=== PATIENT | female | born 2005 | race African-American/Black ===

== ENCOUNTER 2025-02-06 08:14 | Emergency (ER) | payer MEDICAID, SELFPAY ==
[2025-02-06 08:24] VITALS: BP 107/69; PULSE 89; RESP 18; TEMP 36.5; O2SAT 100
--- OUTSIDE RECORDS SUMMARY | 2025-02-06 08:57 | XMS_ITS | Clinical Summary ---
Author Organization [facility] Address [address] [place] [id number] Care Team Providers Care Sausage Stuffer Name Role Phone [facility] Primary Care Prov ider Allergies No known active allergies Medications tacrolimus (PROTOPIC) 0.1 % ointmentIndicat ions:Dermatitis Apply thin layer to affected areas on face and neck 1-2 times a day as needed . Not a steroid. Safe for long term care phlebotomist daily application. 60 g 3 5 Active white petrolatum (Aquaphor OriginaL) 41 % ointmentIndicat ions:Cheilitis Apply topically to affected area(s) 3 times daily if needed (multiple times daily). 30 g 2 5 Active tretinoin (RETIN-A) 0.025 % creamIndication s:Acne vulgaris Apply pea-sized amount to face at bedtime; start every other night, increase as tolerated 45 g 11 5 Active Active Problems Problem Noted Date Diagnosed Date Prediabetes 12/24/2024 Adjustment disorder with mixed anxiety and depre ssed mood 03/19/2023 Encounters Date Type Department Care Team Description 01/26/2025 Travel 01/03/2025 12:40 PM CDT Telemedicine [facility] [address] [place] [id number] Judith Joaquin MD Derm Problem 12/24/2024 11:20 AM CDT Telemedicine [facility] [address] [facility] [place] [id number] Simi Ch NP Telehealth (Discuss ADHD concerns) 11/29/2024 1:40 PM CDT Telemedicine [facility] [address] [address] Elda Serrato PA Telehealth (no vitals taken/) 11/18/2024 3:00 PM CDT Office Visit [facility] [address] [place], [place] [id number] Jason Henry, SILVESTRE Eye Problem 11/17/2024 Travel from Last 3 Months Immunizations Immunization Administration Dates Next Due DTaP 02/11/2006, 4,03/09/2004,01/03 DTaP-IPV (Kinrix) 01/08/2010 HIB PRP-OMP (PedvaxHIB) 03/09/2004 HIB-HepB (Comvax) 01/04/2004 HPV 9 (Gardasil 9) 09/03/2017,04/16/2016 Hepatitis A (Peds) 04/16/2016,08/09/2011 Hepatitis B (Peds) 05/01/2004,2003 Inactivated Polio Vaccine 07/31/2004,03/09/2004, 01/04/2004 Influenza, IIV3 (Age 6-35 mos) 03/27/2011 Influenza, IIV3 (Age >=3 years) 03/01/2008 Influenza, IIV4 02/07/2023 MMR 01/08/2010 Meningococcal Vaccine (Menactra) 04/16/2016 Pneumococcal conj 7-Valent (Prevnar 7) 4,03/09/2004,01/04/2004 Tdap 04/16/2016 Typhoid (injectable) 10/09/2017,08/09/2011 Varicella Vaccine 01/08/2010 Yellow Fever 08/09/2011 Social History Tobacco Use Types Packs/Day Years Used Date Smoking Tobacco: Never Passive Smoke Exposure: Never Smokeless Tobacco: Never Tobacco Cessation:Counseling Given: Not Answered Alcohol Use Standard Drinks/Week Comments Never 0 (1 standard drink = 0.6 oz pur e alcohol) PHQ-2 Answer Date Recorded PHQ-2 TOTAL SCORE 0 02/17/2024 Social Connections Answer Date Recorded Do you often feel lonely or isolated from those around you? 0 02/17/2024 Financial Resource Strain Answer Date R ecorded Difficulty of Paying Living Expenses 3 02/17/2024 Difficulty of Paying Living Expenses Not on file 02/17/2024 Food Insecurity Answer Date Recorded Do you worry your food will run out before you are able to buy more? 1 02/17/2024 Transportation Needs Answer Date Record ed Does lack of transportation keep you from medica l appointments? 1 02/17/2024 Does lack of transportation keep you from work, meetings or getting things that you need? 1 02/17/2024 Housing Stability Answer Date Recorded What is your housing situation today? 2 02/17/2024 Interpersonal Safety Answer Date Record ed Are you being hit, kicked, p ushed or yelled at (see row info)? No 05/27/2024 Interpersonal Safety Abuse 12 - 18 Not on file 05/27/2024 Interpersonal Safety Ambulatory Vulnerability No t on file 05/27/2024 Utilities Answer Date Recorded Do you have trouble paying f or utilities (for example, heat, electricity, water, phone)? 1 02/17/2024 Comments No Sex and Gender Information Value Date Recorded Sex Assigned at Not on file Legal Sex Female 9:52 AM CDT Gender Identity Not on file Sexual Orientation Not on file Obstetrics History Last Filed Vital Signs Vital Sign Reading Time Taken Comments Blood Pressure 112/68 07/02/2024 3:25 PM TREASURY REPRESENTATIVE Pulse 94 07/02/2024 3:25 PM TREASURY REPRESENTATIVE Temperature 36.6 C (97.8 F) 05/27/2024 10:20 AM TREASURY REPRESENTATIVE Respiratory Rate 18 05/27/2024 10:20 AM TREASURY REPRESENTATIVE Oxygen Saturation 100% 05/27/2024 10:20 AM TREASURY REPRESENTATIVE Inhaled Oxygen Concentration - - Weight 87.1 kg (192 lb) 07/02/2024 3:25 PM TREASURY REPRESENTATIVE Height 168.9 cm (5' 6.5) 05/27/2024 10:18 AM CS T Body Mass Index - - Plan of Treatment Upcoming Encounters Date Type Department Care Team (Late st Contact Info) Description 03/07/2025 10:00 AM CDT Telemedicine [facility] [address] [place] [address] Halley Martin, Neel, LP [address] [place] [address] Health Maintenance Due Date Last Done Comments HIV for age 15-65 10/31/2018 Chlamydia for age 16-24 2019 Hepatitis C screening for age 18-79 10/31/2021 Pap test for age 21-65 10/31/2024 COVID-19 vaccine series ( - 2023- season) 2025 Influenza Vaccine (#1) 2025 3, 03/27/2011, 03/01/2008 BMI (ht and wt on same day) for age 18+ 02/16/2025 02/17/2024, 02/07/2023 Depression screening for age 12+ 02/22/2025 02/23/2024, 02/17/2024, 03/19/2023, Additional history exists Tetanus booster 04/16/2026 04/16/2016 RSV vaccine for adults or (1 - 1-dose 75+ series) 10/31/2078 Hepatitis B series for 19+ Completed 05/01, 01/04/2004, 2003 Pneumococcal series for age 6-49 Aged Out 05/01/2004, 03/09/2004, 01/04/2004 No longer eligible based on patient's age to complete this topic Meningococcal series for age 11-21 Aged Out 04/16/2016 No longer eligible based on patient's age to complete this topic HPV series for age 9-45 Completed 09/03/2017, 04/16 Care Teams Sausage Stuffer Relationship Specialty Start Date End Date [facility] [address] [place] [address] PCP - General 02/06/23
[2025-02-06 09:15] LABS: PCR FLU A Negative PCR FLU A (Negative); PCR FLU B Negative PCR FLU B (Negative); PCR RSV Negative PCR RSV (Negative); SARS PCR* Negative SARS-CoV-2 (Negative)
[2025-02-06] MEDS: ACETAMINOPHEN 500 MG TABLET 1000 MG PO (09:22)
--- NOTE | 2025-02-06 09:24 | ED_ITS ---
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 Reports that she feels very weak she is coughing with a runny nose, slight sore throat associated with this. She has been sick for the last few days in reports that she was at a concert [place] and thinks this is where she got sick. She reports that all her immunizations are full and up-to-date. She does not have any chest pain, she has been coughing is worried she may have developed pneumonia. She has no past history of any pulmonary or cardiac abnormality she is on no chronic medications, she denies no allergies. She does tell me however that she feels very weak and almost like she passed out at work, so she drove herself here to the emergency department. No history of rashes, vomiting, diarrhea, dysuria frequency, she tells me that she is not . Related Data Previous Rx's ?Medication ?Instructions ?Recorded amoxicillin 500 mg capsule 500 mg PO TID #30 caps 01/11 01/03 Allergies Allergy/AdvReac Type Severity Reaction Status Date / Time No Known Drug Allergies Allergy Verified 02/06/25 08:25 Review of Systems Status of ROS: Reports: 10 or more systems reviewed and unremarkable except as noted in History and below PFSH PFS Social History Smoking Status: Never smoker How often do you have a drink containing alcohol: never AUDIT-C Alcohol total score: 0 Non-prescribed substance use: denies use Exam Narrative: Exam Narrative: On examination in room 4 she is alert oriented in no apparent distress her vital signs are entirely normal, speaking to me normally her pupils are equal round reactive to light there is no scleral icterus redness, she has braces on her teeth, her mouth opening is normal there is no significant redness of her oropharynx, there is normal hydration status there is no trismus, there is no significant lymphadenopathy anterior posterior chains, cranial nerves 3-12 are normal, her right TMs show some erythematous and some slight bulging, left side appears serous fluid, but otherwise normal. Chest is good air entry bilaterally with no wheezing crackles noted, heart sounds no clicks murmurs or gallops, abdomen is soft there is no guarding, no organomegaly bowel sounds are normal. Back is nontender to palpation, no CVA tenderness she moves all extremities independently and well, follows commands. Skin reveals no rashes. Const: Vital Signs, click to edit/add: Vital Signs - 24 hr 02/06/25 08:24 Temperature 97.7 F Pulse Rate [Pulse Oximeter] 89 Respiratory Rate 18 Blood Pressure [Ri ght Upper Arm] 107/69 Pulse Oximetry 100 Oxygen Delivery Me thod Room Air Documenting provider has reviewed patient's vital signs: yes Course Vital Signs Vital signs: Initial Vital Signs Temperature 97.7 F 02/06/25 08:24 Temperature Source Temporal Artery Scan 02/06/25 08:24 Pulse Rate 89 02/06/25 08:24 Respiratory Rate 18 02/06/25 08:24 Blood Pressure 107/69 02/06/25 08:24 Blood Pressure Mean 81 02/06/25 08:24 Blood Pressure Position Sitting 02/06/25 08:24 Pulse Oximetry 100 02/06/25 08:24 Oxygen Delivery Method Room Air 02/06/25 08:24 Vital Signs Temperature 97.7 F 02/06/25 08:24 Pulse Rate 89 02/06/25 08:24 Respiratory Rate 18 02/06/25 08:24 Blood Pressure 107/69 02/06/25 08:24 Pulse Oximetry 100 02/06/25 08:24 Oxygen Delivery Method Room Air 02/06/25 08:24 Temperature 97.7 F 02/06/25 08:24 Pulse Rate 89 02/06/25 08:24 Respiratory Rate 18 02/06/25 08:24 Blood Pressure 107/69 02/06/25 08:24 Pulse Oximetry 100 02/06/25 08:24 Oxygen Delivery Method Room Air 02/06/25 08:24 Medications Administered Medications: Discontinued Medications Generic Name Dose Route Start Last Admin Trade Name Freq PRN Reason Stop Dose Admin Acetaminophen 1,000 mg 02/06/25 09:18 02/06/25 09:22 Acetaminophen 500 Mg Tablet PO 02/06/25 09:19 1,000 mg ONCE ONE Administration MDM - Weakness MDM Narrative Medical decision making narrative: I discussed with her examination and vital signs are within normal limits I suspect she has a viral illness coupled with the right-sided otitis media. This alone can make you feel slightly dizzy, she has not taken any medications for this, we will await full results of her laboratory tests. If they are negative, I suspect that she would benefit by an antibiotic course, amoxicillin. This will cover her for pneumonia which was also concern hers. I think she should take some probiotics and use generous Tylenol, if she does not feel that she can drive home she can sit in our lobby and wait for ride. 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 Medical Records Attestation: I reviewed the patient's medical records. Lab Data Attestation: I reviewed the patient's lab results. Labs: Lab Results 02/06/25 Range/Units 08:20 SARS-CoV-2 (PCR) Negative SARS-CoV-2 (Negative) Influenza Type A (PCR) Negative PCR FLU A (Negative) Influenza Type B (PCR) Negative PCR FLU B (Negative) RSV (PCR) Negative PCR RSV (Negative) Discharge Plan Discharge Clinical Impression: Upper respiratory infection, viral, Otitis media, Weakness Patient Disposition: Home, Self-Care Condition: Stable Instructions: Ear Infection (ED), Viral Syndrome (ED) Additional Instructions: Home rest use of Tylenol 3 times a day, 1 g. Use of amoxicillin as directed. Off work for the next 48 hours, if you need longer you will have to follow up with primary care return if signs and symptoms of worsening such as breathing issues, chest pain shortness of breath. The antibiotic will cause some mild diarrhea, please use lots he over, and other probiotics. Your test for COVID, RSV, influenza was negative. You do not have pneumonia by clinical examination, the antibiotics here receiving we use for pneumonia anyway, so you will be thusly be covered. Activity Level: Light activity Discharge Diet: Regular Prescriptions: New amoxicillin 500 mg capsule 500 mg PO TID Qty: 30 0RF Follow Up/Referrals: Provider,Not a Local [Primary Care Provider, Family Practice] Stand Alone Forms: Work/School Release, [facility] Info Instructions
== END 2025-02-06 09:31 | disposition home or self-care (01) ==
PROVIDERS: Emergency Provider Family Medicine
DX: H66.91 Otitis media, unspecified, right ear (principal); J06.9 Acute upper respiratory infection, unspecified; R53.1 Weakness
CPT/HCPCS: 87631; 99283; 99284; A9270